=== PATIENT | male | born 1995 | race Two or more races ===

== ENCOUNTER 2023-07-15 09:14 | Emergency (ER) | payer SELFPAY ==
[~2023-07-15] VITALS: Ht 177.8 cm; Wt 124.6 kg
[2023-07-15 10:28] VITALS: BP 123/60; PULSE 89; RESP 19; TEMP 98.9; O2SAT 97
[2023-07-15] MEDS ORDERED: DexAMETHasone SOD PHOS 10MG/1ML VIAL INJ PO ONE (12:00)
[2023-07-15] MEDS ORDERED: KETOROLAC TROMETH 30 MG/ML 1ML VIAL IM ONE (12:00)
== END 2023-07-15 12:06 | disposition home or self-care (01) ==
LOC: ER 09:14
DX: J02.9 Acute pharyngitis, unspecified (principal)
CPT/HCPCS: 96372; 99283; J1100; J1885